=== PATIENT | female | born 1940 | race Caucasian/White ===

== ENCOUNTER 2022-01-31 14:28 | Outpatient (REF) | payer MEDICARE, SELFPAY ==
--- NOTE | ~2022-01-31 | XR_ITS ---
EXAMINATION: XR CHEST CLINICAL INFORMATION: Acute bronchitis COMPARISON: None TECHNIQUE: 2 views of the chest were obtained. FINDINGS: No significant abnormality is noted involving the heart, lungs, mediastinum, bony thorax or soft tissues. XR/XR chest 2V IMPRESSION: Unremarkable examination.
== END 2022-01-31 14:29 | disposition home or self-care (01) ==
LOC: HO.HMGCX 14:28
PROVIDERS: PCP Internal Medicine; Visit Provider Internal Medicine
DX: J20.9 Acute bronchitis, unspecified (principal)
CPT/HCPCS: 71046

== ENCOUNTER 2022-06-23 11:57 | Outpatient (REF) | payer MEDICARE, SELFPAY ==
--- NOTE | ~2022-06-23 | XR_ITS ---
EXAMINATION: XR CHEST CLINICAL INFORMATION: Acute bronchitis. COMPARISON: 01/31/2022 TECHNIQUE: 2 views of the chest were obtained. FINDINGS: Lungs are well expanded and without evidence of acute abnormality. No interstitial infiltrate, consolidation or pleural effusion. Cardiac silhouette is normal in size. The pulmonary vascular pattern is normal. The visualized bones are intact. XR/XR chest 2V IMPRESSION: No acute pulmonary disease.
== END 2022-06-23 11:58 | disposition home or self-care (01) ==
LOC: HO.HMGCX 11:57
PROVIDERS: PCP Internal Medicine; Visit Provider Internal Medicine
DX: J20.9 Acute bronchitis, unspecified (principal)
CPT/HCPCS: 71046

== ENCOUNTER 2024-04-24 09:34 | Outpatient (REF) | payer MEDICARE, SELFPAY | END 2024-04-24 09:35 | disposition home or self-care (01) | LOC: HO.LAB 09:34 | PROVIDERS: PCP Internal Medicine | DX: Z13.89 Encounter for screening for other disorder (principal) | CPT/HCPCS: 94640; 99202 ==

== ENCOUNTER 2024-04-24 09:34 | Outpatient (AMB) | payer MEDICARE, SELFPAY ==
[2024-04-24 10:25] VITALS: BP 120/70; PULSE 76; O2SAT 94; BMI 28.0
--- NOTE | 2024-04-24 10:25 | MHC.OFFWIV ---
Intake Vital Signs 04/24/24 10:25 Height 5 ft 2 in Weight 153 lb BMI 28.0 BP 120/70 Blood Pressure Location Lt brachial Position Sitting Pulse 76 Pulse Source Pulse Oximeter Pulse Oximetry (%) 94 Oxygen Delivery Method Room Air Intake Visit Reasons: EP cough, congestion Intake Note: Pt is here today for a sick visit. Pt c/o cough congestion body aches. Allergies No Known Allergies Allergy (Verified 04/24/24 10:27) HPI HPI Comments History of Present Illness Details History - The patient is an 83-year-old female presenting with a persistent cough lasting five days. - Symptom onset was gradual but has notably intensified over the last one to two days. - The cough is particularly severe at night, causing chest pain and headache, and is accompanied by shortness of breath and occasional wheezing, despite no history of asthma or COPD. - The patient attempted symptom management using [id number] cough syrup, aspirin, and cough drops. - There is a possible sensation of fever without temperature confirmation. - No current illnesses among contacts.l. Physical Exam General: Cooperative, healthy appearing, comfortable and no acute distress Orientation/consciousness: Patient oriented x3 Limitations: No limitations Head: Normal to inspection Ears: Hearing grossly normal bilaterally, external ears normal and TM's normal bilaterally Nose: Normal external nose present, Normal nares present and No nasal discharge present Face and sinus: Normal facial exam and Yes sinuses nontender Mouth: Normal oral and palatal mucosa present and moist mucous membranes Throat: Yes tonsils normal, Yes uvula midline. Posterior oropharynx erythema Eyes: Appearance normal, both eyes and all related structures Neck: Normal visual inspection Respiratory: Clear but dim to auscultation bilaterally. Normal respiratory effort, able to speak in complete sentences, Actively coughing, no respiratory distress, not tachypneic, no tripod positioning and no use of accessory muscles Cardiovascular: Regular rate and rhythm. Normal S1 and S2 Skin: No rashes or lesions noted Neuro: Patient oriented x3 Extremities: Normal to inspection and Yes no clubbing, cyanosis or edema Review of Systems Const All systems reviewed & are unremarkable except as noted in HPI and below Physical Exam Vital Signs: Last Vital Signs Pulse 76 04/24/24 10:25 BP 120/70 04/24/24 10:25 Pulse Ox 94 04/24/24 10:25 Oxygen Delivery Method Room Air 04/24/24 10:25 BMI result Body Mass Index 28.0 Office Procedures Nebulizer Treatment Nebulizer Treatment [id number]/MDI RX initial, or Nebulizer Subsequent Treatment Office Meds ipratropium 0.5 mg-albuterol 3 mg (2.5 mg base)/3 mL nebulization soln Performing Provider: Prema Bliss PA-C Performing Location: [facility] Administered by: Prema Bliss PA-C on 04/24/24 11:06 Dose Route Admin Location Dispensed Lot Number Expiration Date [facility] [place] [employer] 3 mL inhalation 3 mL [id number] 06/07/25 71709-352-18 [employer] Assessment & Plan Assessment & Plan (1) Acute bronchitis: Code(s): J20.9 - Acute bronchitis, unspecified Qualifiers: Bronchitis organism: unspecified organism Qualified Code(s): J20.9 - Acute bronchitis, unspecified Plan: O2 sat 94%, other vss, pt coughing a lot during exam and lung sounds dim but clear. O2 sat 97% post duoneb nebulizer treatment. The patient is experiencing a productive cough with symptoms pointing towards a potential viral or bacterial respiratory infection. Testing for influenza, COVID-19, and RSV is planned to rule out common respiratory viruses. A chest X-ray is advised to identify potential bacterial pneumonia. Nebulization therapy will be administered in office to reduce bronchospasm and improve breathing discomfort. Tessalon Perles are advised to help manage nightly coughing fits, while a Z-Benjamin is prescribed to cover atypical bacterial infections. If the chest X-ray confirms pneumonia, a second antibiotic may be included for broader coverage. Patient was informed and verbally consented to the use of an ambient scribe for clinic note documentation during this visit Orders: Orders SARS-CoV2/FLU/RSV Today R09.89 - Other specified symptoms and signs involving the circulatory and respiratory systems AMB Nebulizer Treatment Today J20.9 - Acute bronchitis, unspecified Medications: New benzonatate 200 mg PO TID PRN 14 caps 0RF cough azithromycin For 250 mg dose pack: take 500 mg today (day 1), then 250 mg for 4 days (days 2-5) PO 6 tabs 0RF Coding Level of Care Code New Pt Level 5 (41724) Diagnoses Acute bronchitis, unspecified organism J20.9 Bronchitis organism: unspecified organism CPT Codes Nebulizer Treatment - Nebulizer Treatment, initial or subsequent: [id number]/MDI RX initial, or Nebulizer Subsequent Treatment ([id number])
== END 2024-04-24 11:19 | disposition home or self-care (01) ==
PROVIDERS: PCP Internal Medicine; Visit Provider Physician Assistant
DX: J20.9 Acute bronchitis, unspecified (principal)

== ENCOUNTER 2024-04-24 11:12 | Outpatient (REF) | payer MEDICARE, SELFPAY ==
--- NOTE | ~2024-04-24 | XR_ITS ---
EXAMINATION: XR CHEST 2 VIEWS HISTORY: R05.9 - Cough, unspecified COMPARISON: Comparison is made with the prior examination dated 06/23/2022. FINDINGS: PA and lateral views of the chest are submitted. The lungs are expanded and clear. There is no pleural effusion, pneumothorax, or pulmonary vascular congestion. The heart is normal in size. There is degenerative disc disease of the spine. XR/XR chest 2V IMPRESSION: No acute cardiopulmonary abnormality. Electronically signed by: Denilson Nicole MD 04/24/2024 12:10 PM ABIEL
[2024-04-24 13:57] LABS: Influenza A PCR NEGATIVE (Negative); Influenza B PCR NEGATIVE (Negative); Resp Syncy Virus RNA Qual PCR POSITIVE (Negative); SARS COV2 PCR INHOUSE NEGATIVE (Negative)
== END 2024-04-24 11:13 | disposition home or self-care (01) ==
LOC: HO.HMGCX 11:12
PROVIDERS: PCP Internal Medicine; Visit Provider Physician Assistant
DX: J20.9 Acute bronchitis, unspecified (principal); R09.89 Other specified symptoms and signs involving the circulatory and respiratory systems
CPT/HCPCS: 0241U; 71046; 94640; 99202

== ENCOUNTER → 2024-04-24 11:25 | Outpatient (BNV) | payer MEDICARE, SELFPAY | PROVIDERS: PCP Internal Medicine; Visit Provider Radiology Diagnostic Radiology | DX: R05.9 Cough, unspecified (principal) | CPT/HCPCS: 71046 ==

== ENCOUNTER 2025-01-01 14:38 | Outpatient (AMB) | payer MEDICARE, SELFPAY ==
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
[2025-01-01 14:44] VITALS: BP 126/64; PULSE 75; TEMP 36.6; O2SAT 98; BMI 27.1
--- OUTSIDE RECORDS SUMMARY | 2025-01-01 17:13 | XMS_ITS | Encounter Summary ---
Author Organization [employer] Address [address] [place] [address] 7 [place] [address] Care Team Providers Care Package Sealer Name Role Phone Unavailable Primary Care Provider Unavailabl e Encounter Details Date Type Department Care Team (Latest Contact Info) Description 06/08/2020 Abstract [facility] CONVERSIONS Dental, Provider, DDS Social History Tobacco Use Types Packs/Day Years Used Date Smoking Tobacco: Never Assessed Comments Unknown Sex and Gender Information Value Date Recorded Sex Assigned at Female 02/07/2022 10:23 AM EDT Legal Sex Female 10:23 AM EDT Gender Identity Female 09/12/2022 8:11 AM EDT Sexual Orientation Straight 02/07/2022 10 :23 AM EDT documented as of this encounter Plan of Treatment Upcoming Encounters Date Type Department Care Team ( st Contact Info) Description 04/01/2025 10:15 AM EST Office Visit [facility] [address] [place] [address] Maverick Briones documented as of this encounter Visit Diagnoses Not on filedocumented in this encounter
--- OUTSIDE RECORDS SUMMARY | 2025-01-01 17:13 | XMS_ITS | Encounter Summary ---
Author Organization [employer] Address [address] [place] [address] [place] [address] Care Team Providers Care Marketing Community Liaison Name Role Phone Unavailable Primary Care Provider Unavailabl e Reason for Visit * Reason Onset Date Comments Appointment 08/26/2022 Encounter Details Date Type Department Care Team (Late st Contact Info) Description 08/26/[address] [facility] [address] [place] [address] Ehsan Reddy [address] [place], [place] [phone] Appointment Social History Tobacco Use Types Packs/Day Years Used Date Smoking Tobacco: Never Assessed Comments Unknown Sex and Gender Information Value Date Recorded Sex Assigned at Female 02/07/2022 10:23 AM EDT Legal Sex Female 10:23 AM EDT Gender Identity Female 09/12/2022 8:11 AM EDT Sexual Orientation Straight 02/07/2022 10 :23 AM EDT documented as of this encounter Miscellaneous Notes * Telephone Encounter - Lubna Fitzgerald - 08/26/2022 11:01 AM EDT Patient has been on wait list since May in [facility] for Prophy exam xrays. No room on PAR side for scheduling. Pls reach out to patient for appt DR documented in this encounter Plan of Treatment Upcoming Encounters Date Type Department Care Team (Late st Contact Info) Description 04/01/2025 10:15 AM EST Office Visit [facility] [address] [place] [address] Maverick Briones documented as of this encounter Visit Diagnoses Not on filedocumented in this encounter
--- OUTSIDE RECORDS SUMMARY | 2025-01-01 17:13 | XMS_ITS | Encounter Summary ---
Author Organization [employer] Address [address] [place] [address] 7 [place] [address] Care Team Providers Care Nick Setter Name Role Phone Unavailable Primary Care Provider Unavailabl e Encounter Details Date Type Department Care Team (Latest Contact Info) Description 08/11/2021 Abstract [facility] CONVERSIONS Dental, Provider, DDS Social History Tobacco [...] Description 04/01/2025 10:15 AM EST Office Visit [facility] [address] [place] [address] Maverick Briones documented as of this encounter Visit Diagnoses Not on filedocumented in this encounter
--- OUTSIDE RECORDS SUMMARY | 2025-01-01 17:13 | XMS_ITS | Clinical Summary ---
Author Organization [employer] Address [address] [place] [address] [address] [place] [address] Care Team Providers Care [employer] Name Role Phone Unavailable Primary Care Provider Unavailabl e Allergies No known active allergies Medications hydroCHLOROthia zide (HYDRODiuril) 6.25 MG split tablet Take 1 tablet by mouth at bed time. Active ibuprofen 600 MG tablet take 1 tablet (600MG) by oral route 3 times with food 04/12/2018 Active omeprazole (PriLOSEC) [address] capsule Take 1 capsule by mouth at bed time. Active simvastatin (Zocor) 20 MG tablet Take 1 tablet by mouth at bed time. Active losartan (Cozaar) 50 MG tablet Take 50 mg by mouth in the morning. 09/27/2022 Active oxybutynin XL (Ditropan-XL) 10 MG 24 hr tablet Take 10 mg by mouth in the morning. 09/07/2022 Active meloxicam (Mobic) 7.5 MG tablet Take 7.5 mg by mouth in the morning. 09/08/2022 Active gabapentin (Neurontin) 100 MG capsule Take 100 mg by mouth 2 times daily. 09/21/2022 Active amLODIPine (Norvasc) 10 MG tablet Take 1 tablet by mouth Once per day. 08/01/2024 Active Encounters Date Type Department Care Team Description 10/08/2024 11:00 AM EDT Office Visit [facility] [address] [place] [address] Aaron Crews from Last 3 Months Social History Tobacco Use Types Packs/Day Years Used Date Smoking Tobacco: Never Passive Smoke Exposure: Never Smokeless Tobacco: Never Tobacco Cessation:Counseling Given: Not Answered Alcohol Use Standard Drinks/Week Comments Yes 1 (1 standard drink = 0.6 oz pur e alcohol) Comments Unknown Sex and Gender Information Value Date Recorded Sex Assigned at Female 02/07/2022 10:23 AM EDT Legal Sex Female 10:23 AM EDT Gender Identity Female 09/12/2022 8:11 AM EDT Sexual Orientation Straight 02/07/2022 10 :23 AM EDT Last Filed Vital Signs Vital Sign Reading Time Taken Comments Blood Pressure 130/60 09/24/2024 8:04 AM EDT Pulse 65 09/24/2024 8:04 AM EDT Temperature - - Respiratory Rate - - Oxygen Saturation - - Inhaled Oxygen Concentration - - Weight - - Height - - Body Mass Index - - Plan of Treatment Upcoming Encounters Date Type Department Care Team (Late st Contact Info) Description 04/01/2025 10:15 AM EST Office Visit [facility] [address] [place] [address] Maverick Briones Health Maintenance Due Date Last Done Comments Depression Screening 1940 Lipid Panel 1940 SDOH Screening 1940 Alcohol/Substance Use Screening 1952 Zoster Vaccines (1 of 2) 1990 RSV Patients and Patients Aged 60 years or older (1 - 1-dose 75+ series) 06/28/2015 DTaP/Tdap/Td Vaccines (1 - Tdap) 01/16/2021 01/15/2021, 07/19/2005 Dental Oral Exam 03/23/2024 09/21/2023, 03/2023, 09/12/2022, Additional history exists COVID-19 Vaccine ( season) 2024 12/20/2023, 03/02/2021, 08/15/2020, Additional history exists Influenza Vaccine (#1) 2024 Dental Prophylaxis 03/27/2025 09/24/2024, 1 05/26/2023, 09/21/2023, Additional history exists Dental X-Ray: Bitewings 09/25/2025 09/25/19, 09/21/2023, 09/12/2022, Additional history exists Tobacco Screening 10/08/2025 10/08/2024 Dental X-Ray: Full Mouth 09/21/2026 09/21/2023, 10/09 Pneumococcal Vaccine: 50+ Years Completed 06/19/2024, 07/19/2005 HIB Vaccines Aged Out No longer eligi ble based on patient's age to complete this topic HPV Vaccines Aged Out No longer eligi ble based on patient's age to complete this topic Hepatitis A Vaccines Aged Out No long er eligible based on patient's age to complete this topic Hepatitis B Vaccines Aged Out No long er eligible based on patient's age to complete this topic IPV Vaccines Aged Out No longer eligi ble based on patient's age to complete this topic Meningococcal B Vaccine Aged Out No l onger eligible based on patient's age to complete this topic Meningococcal Vaccine Aged Out No bonnie theresa eligible based on patient's age to complete this topic RSV under 20 months Aged Out No longe r eligible based on patient's age to complete this topic Rotavirus Vaccines Aged Out No longer eligible based on patient's age to complete this topic Procedures Procedure Name Priority Date/Time Associated Diagnosis Comments 28 B RESIN-BASED COMPOSITE - 1 SURF, POSTERIOR Routine 10/08/2024 11:00 AM EDT PROPHYLAXIS - ADULT Routine 09/24/2024 8 :00 AM EDT BITEWINGS - 4 RADIOGRAPHIC IMAGES Routine 09/24/2024 8:00 AM EDT INTRAORAL - COMPLETE SERIES OF RADIOGRAPHIC IMAGES Routine 09/21/2023 8:00 AM EDT PERIODIC ORAL EVALUATION - ESTABLISHED PATIENT Routine 09/21/2023 8:00 AM EDT from Last 3 Months or Most Recently Relevant to Health Maintenance Insurance DENTAL - HSN FULL (MEDICAID)
--- OUTSIDE RECORDS SUMMARY | 2025-01-01 17:13 | XMS_ITS | Clinical Summary ---
Author Organization [facility] [address] [facility] Address [address] [place] [address] Phone Care Team Providers Care Trade Mark Attorney Name Role Phone Kimberlyn Garcia MD Primary Care Provider Allergies No known active allergies Medications gabapentin (NEURONTIN) 100 mg capsule TAKE 2 CAPSULES BY MOUTH TWICE A DAY FOR 30 DAYS Active albuterol HFA (PROAIR HFA ; PROVENTIL HFA ; VENTOLIN HFA) 90 mcg/actuation inhaler Inhale 2 puffs by mouth every 4 (four) hours if needed for wheezing. 18 g 04/25/2024 Active amLODIPine (NORVASC) 10 mg tablet Take 1 tablet (10 mg total) by mouth 1 (one) time each day. 90 each 1 08/01/2024 01/29/20 25 Active losartan (COZAAR) 100 mg tablet Take 1 tablet (100 mg total) by mouth 1 (one) time each day. 90 tablet 1 08/01/2024 Active omeprazole (PriLOSEC) [address] capsule TAKE 1 CAPSULE BY MOUTH 1 TIME EACH DAY. 90 capsule 1 09/01/2024 Active oxyBUTYnin XL (DITROPAN-XL) 10 mg 24 hr tablet TAKE 1 TABLET BY MOUTH EVERY DAY 90 tablet 1 09/01/2024 Active hydroCHLOROthia zide 12.5 mg tablet TAKE 1 TABLET (12.5 MG TOTAL) BY MOUTH AT BEDTIME. 90 tablet 1 09/19/2024 Active simvastatin (ZOCOR) 20 mg tablet TAKE 1 TABLET BY MOUTH EVERYDAY AT BEDTIME 90 tablet 1 11/28/2024 Active Active Problems Problem Noted Date Diagnosed Date Prediabetes 01/15/2021 Assessment & Plan (05/13/2024 5:13 PM EST): Orders: Hemoglobin A1c; Future Overweight 07/19/2017 Thrombocytopenia ([facility] V24) 03/26/2010 Overview (04/21/2024): Pure hypercholesterolemia 04/07/2009 Assessment & Plan (05/13/2024 5:13 PM EST): GERD (gastroesophageal reflux disease) Overview (04/21/2024): Upper GI endoscopy visually normal 09/16 Essential hypertension, benign 08/24/2005 Assessment & Plan (05/13/2024 5:13 PM EST): Urinary incontinence 07/19/2005 Encounters Date Type Department Care Team Description 10/30/2024 9:33 AM EDT - 10/30/2024 11:59 PM EDT Hospital Encounter [address] [phone] Fall, subsequent encounter; Acute pain of right knee Discharge Disposition: Home or Self Care 10/30/2024 9:30 AM EDT - 10/30/2024 11:59 PM EDT Hospital Encounter [address] [phone] Fall, subsequent encounter; Right wrist pain Discharge Disposition: Home or Self Care 10/30/2024 8:30 AM EDT Office Visit Adult Medicine [address] [phone] Niharika Ramos PA Fall, subsequent encounter (Primary Dx); Facial injury, subsequent encounter; Facial laceration, subsequent encounter; Nasal pain; Acute pain of right knee; Right wrist pain 10/25/2024 7:49 AM EDT - 10/25/2024 10:[address] [facility] Emergency [address] [place] [address] Heri Strong MD Laceration of nose, initial encounter (Primary Dx) Discharge Disposition: Home or Self Care 10/15/2024 2:15 PM EDT Office Visit Adult Medicine [address] [phone] Stefani Berry NP Herpes zoster without complication (Primary Dx); Primary hypertension 10/15/2024 Telephone Adult Medicine [address] [phone] Kimberlyn Garcia MD from Last 3 Months Immunizations Name Administration Dates Next Due Pneumococcal conjugate 20 va lent (Prevnar 20, PCV 20) 2mo and older 06/19/2024 Pneumococcal polysaccharide 23 valent (Pneumovax 23) 2yo and older 07/19/2005 Td Tetanus diptheria (Tdvax) 7yo and older 01/15,07/19/2005 Surgical History Surgery Date Site/Laterality Comments HYSTERECTOMY : Has one ovary ESOPHAGOGASTRODUODENOSCOPY 09/16/2008 visually normal on PPI rx, esophageal bx: Esophageal biopsies normal. OTHER SURGICAL HISTORY 2009 PELVIC SLING; COMMENT: Dr. Lauren, TO sling for incontinence Medical History Medical History Date Comments Unspecified urinary incontinence 07/19/2005 Special screening for malign ant neoplasms, colon 04/17/2006 Negative colonoscopy 7, no colon cancer screening needed for 10 years. Unspecified essential hypertension 01/19/2007 Heart disease, unspecified 01/19/2007 GERD (gastroesophageal reflux disease) 09/16/2008 Thrombocytopenia (CMS/HCC V24) 03/26/2010 Prediabetes 01/15/2021 Family History Medical History Relation Name Comments Diabetes Father alzheimers Lung cancer Sister 1 Ovarian cancer Sister 2 Breast cancer Neg Hx Colon cancer Neg Hx Relation Name Status Comments Father Mother (Age age 89 of old age) Sister 1 Sister 2 Social History Tobacco Use Types Packs/Day Years Used Date Smoking Tobacco: Never Smokeless Tobacco: Never Tobacco Cessation:Counseling Given: Not Answered Alcohol Use Standard Drinks/Week Comments Yes 0 (1 standard drink = 0.6 oz pur e alcohol) Comments No Sex and Gender Information Value Date Recorded Sex Assigned at Not on file Legal Sex Female 7:53 AM EST Gender Identity Not on file Sexual Orientation Not on file Obstetrics History Para Term AB IAB SAB Ectopic Multiple Livin g Live Births 4 4 4 4 Date Outcome GA Total Labor Labor/2nd/3rd Weight Sex Type Anes PTL Tami A1 A5 Name Clin Term Term Term Term Last Filed Vital Signs Vital Sign Reading Time Taken Comments Blood Pressure 106/88 10/30/2024 8:27 AM EDT Pulse 71 10/30/2024 8:27 AM EDT Temperature 36.6 C (97.8 F) 10/30/2024 8:27 AM EDT Respiratory Rate 14 10/30/2024 8:27 AM EDT Oxygen Saturation 97% 10/30/2024 8:27 AM EDT Inhaled Oxygen Concentration - - Weight 64.9 kg (143 lb) 10/30/2024 8:27 AM EDT Height 157.5 cm (5' 2 ) 10/30/2024 8:27 AM EDT Body Mass Index 26.16 10/30/2024 8:27 AM EDT Plan of Treatment Upcoming Encounters Date Type Department Care Team (Late st Contact Info) Description 01/31/2025 8:00 AM EDT Office Visit Adult Medicine [address] [phone] Nan Spain PA [address] [place] [phone] Health Maintenance Due Date Last Done Comments Zoster Vaccines (1 of 2) 1990 RSV Immunization Adult Patients (1 - 1-dose 75+ series) 06/28/2015 Social Influencers of Health Screening 03/19/2022 COVID-19 Vaccine ( season) 2024 12/20/2023, 03/02/2021, 08/15/2020, Additional history exists Influenza Vaccine (#1) 2024 Hypertension/CHF/CAD Annual BMP Blood Test 04/28/2025 04/28/2024, 04/25/2024, 01/19/2024 Falls Risk Assessment 05/13/2025 05/13/2024 Medicare Annual Wellness Visit 05/13/2025 05/13/2024 Cholesterol Screening (Lipid Panel) 07/27/2028 07/28/2023 DTaP,Tdap,and Td Vaccines (3 - Td or Tdap) 01/15/2031 01/15/2021, 07/19/2005 Osteoporosis Screening (Bone Density Screening) 09/11/2035 09/10/2020, 07/31/2017 Depression Screening Completed 05/13/2024 Pneumococcal Vaccine: 50+ Years Completed 06/19/2024, 07/19/2005 [...] on patient's age to complete this topic MMR Vaccines Aged Out No longer eligi ble based on patient's age to complete this topic Meningococcal ACWY Vaccine Aged Out N o longer eligible based on patient's age to complete this topic Meningococcal B Vaccine Aged Out No l onger eligible based on patient's age to complete this topic RSV Immunization Patients Under 20 months Aged Out No longer eligible based on patient's age to complete this topic Varicella Vaccines Aged Out No longer eligible based on patient's age to complete this topic Procedures Procedure Name Priority Date/Time Associated Diagnosis Comments XR WRIST 3+ VIEWS RIGHT STAT 10/30/2024 9:49 AM EDT Fall, subsequent encounter Right wrist pain XR KNEE 4+ VIEWS RIGHT STAT 9:49 AM EDT Fall, subsequent encounter Acute pain of right knee HC REPAIR WOUND LEVEL 1 Routine 10/25/2024 12:17 PM EDT IN REPAIR SPRFCL WD SIMPLE FACE/EARS/EYELIDS/NOSE /LIPS/MUC MEMB <= 2.5 CM Routine 10/25/2024 12:[address] MAXILLOFACIAL WO CONTRAST STAT 10/25/2024 9:[address] CERVICAL SPINE WO CONTRAST STAT 10/25/2024 9:[address] HEAD WO CONTRAST STAT 10/25/2024 9 :08 AM EDT BASIC METABOLIC PANEL STAT 04/28/2024 10:17 AM EST LIPID PANEL Routine 07/28/2023 DXA BONE DENSITY STUDY 1+ SITS AXIAL SKEL Routine 09/10/2020 9:43 AM EDT Asymptomatic menopausal state from Last 3 Months or Most Recently Relevant to Health Maintenance Results * XR Wrist 3+ Views Right (10/30/2024 9:49 AM EDT) Anatomical Region Laterality Modality Upper Extremities, Wrist Right Radiogr aphic Imaging 10/30/2024 10:1 6 AM EDT Narrative 10/30/2024 10:20 AM EDT Right wrist, 5 views. History status post fall. Pain. There is no visible displaced fractures or dislocations. There are degenerative changes in the radiocarpal joint as well as in the first carpometacarpal joint. There are tiny calcifications adjacent to the radial styloid process. CONCLUSIONS: No visible displaced fractures or dislocations. Degenerative changes. Tiny calcifications adjacent to the radial styloid process. Please correlate clinically. If symptoms persist, consider CT of the wrist. -------- FINAL REPORT -------- Dictated By: Grisel Alexander Dictated Date: 10/30/2024 10:16 ET Assigned Physician: Grisel Alexander Reviewed and Electronically Signed By: Grisel Alexander Signed Date: 10/30/2024 10:20 ET Workstation ID: [id number] Transcribed By: Self Edit Transcribed Date: 10/30/2024 10:16 ET Procedure Note Grisel Alexander MD - 10/30/2024 Right wrist, 5 views. History status post fall. Pain. There is no visible displaced fractures or dislocations. There aredegenerative changes in the radiocarpal joint as well as in the firstcarpometacarpal joint. There are tiny calcifications adjacent to theradial styloid process. CONCLUSIONS: No visible displaced fractures or dislocations. Degenerativechanges. Tiny calcifications adjacent to the radial styloid process.Please correlate clinically. If symptoms persist, consider CT of thewrist. -------- FINAL REPORT -------- Dictated By: Grisel Alexander Dictated Date: 10/30/2024 10:16 ET Assigned Physician: Grisel Alexander Reviewed and Electronically Signed By: Grisel Alexander Signed Date: 10/30/2024 10:20 ET Workstation ID: [id number] Transcribed By: Self Edit Transcribed Date: 10/30/2024 10:16 ET Niharika NAIK IMG XR PROCEDURES Final Result * XR Knee 4+ Views Right (10/30/2024 9:49 AM EDT) Anatomical Region Laterality Modality Lower Extremities, Knee Right Radiogra [facility] Imaging 10/30/2024 10:1 4 AM EDT Narrative 10/30/2024 10:16 AM EDT Right knee, 4 views. History pain and swelling after the fall. There is no visible fractures or dislocations. There is narrowing of the joint space medially. There are marginal osteophytes in the medial and patellofemoral compartments. There is subtle calcification of the lateral meniscus. There is small effusion. CONCLUSIONS: No fractures or dislocations. Degenerative changes. Chondrocalcinosis. -------- FINAL REPORT -------- Dictated By: Grisel Alexander Dictated Date: 10/30/2024 10:14 ET Assigned Physician: Grisel Alexander Reviewed and Electronically Signed By: Grisel Alexander Signed Date: 10/30/2024 10:16 ET Workstation ID: [id number] Transcribed By: Self Edit Transcribed Date: 10/30/2024 10:14 ET Procedure Note Grisel Alexander MD - 10/30/2024 Right knee, 4 views. History pain and swelling after the fall. There is no visible fractures or dislocations. There is narrowing of thejoint space medially. There are marginal osteophytes in the medial andpatellofemoral compartments. There is subtle calcification of the lateralmeniscus. There is small effusion. CONCLUSIONS: No fractures or dislocations. Degenerative changes.Chondrocalcinosis. -------- FINAL REPORT -------- Dictated By: Grisel Alexander Dictated Date: 10/30/2024 10:14 ET Assigned Physician: Grisel Alexander Reviewed and Electronically Signed By: Grisel Alexander Signed Date: 10/30/2024 10:16 ET Workstation ID: [id number] Transcribed By: Self Edit Transcribed Date: 10/30/2024 10:14 ET us Niharika NAIK IMG XR PROCEDURES Final Result * IN REPAIR SPRFCL WD SIMPLE FACE/EARS/EYELIDS/NOSE/LIPS/MUC MEMB <= 2.5 CM, HC REPAIR WOUND LEVEL1 (10/25/2024 12:17 PM EDT) Heri Mcpherson MD - 10/25/2024 12:17 PM EDT Heri Strong MD 10/25/2024 12:56 PM Laceration Repair Date/Time: 10/25/2024 12:17 PM Performed by: Heri Strong MD Authorized by: Heri Strong MD Consent: Consent obtained: Verbal Consent given by: Patient Risks, benefits, and alternatives were discussed: yes Risks discussed: Infection, need for additional repair, nerve damage, poor wound healing, poor cosmetic result, pain and retained foreign body Alternatives discussed: No treatment [place] protocol: Patient identity confirmed: Verbally with patient Anesthesia: Anesthesia method: None Laceration details: Location: Face Face location: Nose Length (cm): 0.5 Depth (mm): 3 Pre-procedure details: Preparation: Imaging obtained to evaluate for foreign bodies and patient was prepped and draped in usual sterile fashion Exploration: Limited defect created (wound extended): no Hemostasis achieved with: Direct pressure Imaging outcome: foreign body not noted Wound exploration: wound explored through full range of motion and entire depth of wound visualized Wound extent: areolar tissue violated Wound extent: no fascia violation noted, no foreign bodies/material noted, no muscle damage noted, no nerve damage noted, no tendon damage noted, no underlying fracture noted and no vascular damage noted Contaminated: no Treatment: Area cleansed with: Saline Amount of cleaning: Standard Irrigation solution: Sterile saline Irrigation volume: 20cc Irrigation method: Syringe Visualized foreign bodies/material removed: no Debridement: None Undermining: None Scar revision: no Skin repair: Repair method: Sutures Suture size: 6-0 Suture material: Nylon Suture technique: Simple interrupted Number of sutures: 1 Approximation: Approximation: Close Repair type: Repair type: Simple Post-procedure details: Dressing: Antibiotic ointment and adhesive bandage Procedure completion: Tolerated well, no immediate complications us Heri Strong MD IN CLINIC/BEDSIDE ORDERABLES Fin al Result * CT Cervical Spine wo Contrast (10/25/2024 9:08 AM EDT) Anatomical Region Laterality Modality Spine, C-spine Computed Tomogra phy 10/25/2024 9:24 AM EDT Impressions 10/25/2024 9:28 AM EDT Degenerative changes of the cervical spine. No acute fracture. -------- FINAL REPORT -------- Dictated By: Bryan Bajwa Dictated Date: 10/25/2024 09:24 ET Assigned Physician: Bryan Bajwa Reviewed and Electronically Signed By: Bryan Bajwa Signed Date: 10/25/2024 09:28 ET Workstation ID: [id number] Transcribed By: Self Edit Transcribed Date: 10/25/2024 09:24 ET Narrative 10/25/2024 9:28 AM EDT PROCEDURE: Noncontrast CT of the cervical spine. HISTORY: Neck trauma (Age >= 65y). TECHNIQUE: Noncontrast CT of the cervical spine with coronal and sagittal reformats. COMPARISON: None. Dose length product: Total for all concurrently acquired exams was 2266 mGy-cm. FINDINGS: Heterogeneous appearance of the thyroid gland. Mild atherosclerotic calcification of the carotid bulbs. No other paraspinous soft tissue findings. No CT evidence of an acute epidural hematoma. No prevertebral soft tissue swelling. Debris in the external auditory canals. Visualized portions of the skull base are otherwise unremarkable. Bones appear demineralized. There is a slight reversal of the typical cervical lordosis. Slight anterolisthesis at C3-4, C4-5, and C6-7. Mild anterolisthesis at C7-T1. These appear to be degenerative. No fracture. Many of the upper cervical facet joints are fused. Moderate degenerative changes of the endplates and facet joints. There is moderate degenerative spinal stenosis at C5-6. Procedure Note Bryan Bajwa MD - 10/25/2024 PROCEDURE: Noncontrast CT of the cervical spine. HISTORY: Neck trauma (Age >= 65y). TECHNIQUE: Noncontrast CT of the cervical spine with coronal and sagittalreformats. COMPARISON: None. Dose length product: Total for all concurrently acquired exams was 2266mGy-cm. FINDINGS: Heterogeneous appearance of the thyroid gland. Mild atheroscleroticcalcification of the carotid bulbs. No other paraspinous soft tissuefindings. No CT evidence of an acute epidural hematoma. No prevertebralsoft tissue swelling. Debris in the external auditory canals. Visualized portions of the skullbase are otherwise unremarkable. Bones appear demineralized. There is a slight reversal of the typicalcervical lordosis. Slight anterolisthesis at C3-4, C4-5, and C6-7. Mildanterolisthesis at C7-T1. These appear to be degenerative. No fracture. Many of the upper cervical facet joints are fused. Moderatedegenerative changes of the endplates and facet joints. There is moderatedegenerative spinal stenosis at C5-6. IMPRESSION: Degenerative changes of the cervical spine. No acute fracture. -------- FINAL REPORT -------- Dictated By: Bryan Bajwa Dictated Date: 10/25/2024 09:24 ET Assigned Physician: Bryan Bajwa Reviewed and Electronically Signed By: Bryan Bajwa Signed Date: 10/25/2024 09:28 ET Workstation ID: [id number] Transcribed By: Self Edit Transcribed Date: 10/25/2024 09:24 ET Heri Strong MD [facility] [place] PROCEDURES Final Result * CT Maxillofacial wo Contrast (10/25/2024 9:08 AM EDT) Anatomical Region Laterality Modality Head and Neck Computed Tomogra phy 10/25/2024 9:20 AM EDT Impressions 10/25/2024 9:24 AM EDT Mild irregularity of the nasal bones. Cannot exclude a subtle nondisplaced fracture. No other evidence of a facial fracture. -------- FINAL REPORT -------- Dictated By: Bryan Bajwa Dictated Date: 10/25/2024 09:20 ET Assigned Physician: Bryan Bajwa Reviewed and Electronically Signed By: Bryan Bajwa Signed Date: 10/25/2024 09:24 ET Workstation ID: [id number] Transcribed By: Self Edit Transcribed Date: 10/25/2024 09:20 ET Narrative 10/25/2024 9:24 AM EDT PROCEDURE: CT of the face without intravenous contrast. HISTORY: Facial trauma. COMPARISON: None. TECHNIQUE: Noncontrast CT of the face with coronal and sagittal reformats. Dose length product: Total for all concurrently acquired exams was 2266 mGy-cm. FINDINGS: There are atherosclerotic calcifications of the carotid bulbs. Visualized skull base soft tissues are otherwise unremarkable. Degenerative changes of the cervical spine, better visualized on the accompanying dedicated CT C-spine. Debris in the external auditory canals. Hyperostosis frontalis interna. Subtle irregularity of the nasal bones; cannot exclude a subtle nondisplaced fracture. No other evidence of a facial fracture. Incidentally noted small left rayna bullosa. Procedure Note Bryan Bajwa MD - 10/25/2024 PROCEDURE: CT of the face without intravenous contrast. HISTORY: Facial trauma. COMPARISON: None. TECHNIQUE: Noncontrast CT of the face with coronal and sagittalreformats. Dose length product: Total for all concurrently acquired exams was 2266mGy-cm. FINDINGS: There are atherosclerotic calcifications of the carotid bulbs. Visualizedskull base soft tissues are otherwise unremarkable. Degenerative changes of the cervical spine, better visualized on theaccompanying dedicated CT C-spine. Debris in the external auditorycanals. Hyperostosis frontalis interna. Subtle irregularity of the nasal bones; cannot exclude a subtlenondisplaced fracture. No other evidence of a facial fracture. Incidentally noted small left rayna bullosa. IMPRESSION: Mild irregularity of the nasal bones. Cannot exclude a subtlenondisplaced fracture. No other evidence of a facial fracture. -------- FINAL REPORT -------- Dictated By: Bryan Bajwa Dictated Date: 10/25/2024 09:20 ET Assigned Physician: Bryan Bajwa Reviewed and Electronically Signed By: Bryan Bajwa Signed Date: 10/25/2024 09:24 ET Workstation ID: [id number] Transcribed By: Self Edit Transcribed Date: 10/25/2024 09:20 ET Heri Strong MD [facility] [place] PROCEDURES Final Result * CT Head wo Contrast (10/25/2024 9:08 AM EDT) Anatomical Region Laterality Modality Head and Neck Computed Tomogra phy 10/25/2024 9:18 AM EDT Impressions 10/25/2024 9:20 AM EDT No acute intracranial findings. -------- FINAL REPORT -------- Dictated By: Bryan Bajwa Dictated Date: 10/25/2024 09:18 ET Assigned Physician: Bryan Bajwa Reviewed and Electronically Signed By: Bryan Bajwa Signed Date: 10/25/2024 09:20 ET Workstation ID: [id number] Transcribed By: Self Edit Transcribed Date: 10/25/2024 09:18 ET Narrative 10/25/2024 9:20 AM EDT PROCEDURE: Noncontrast head CT. HISTORY: Head trauma, minor (Age >= 65y). COMPARISON: None. TECHNIQUE: Noncontrast head CT with coronal and sagittal reformats. Dose length product: Total for all concurrently acquired exams was 2266 mGy-cm. FINDINGS: BRAIN: No hemorrhage, edema, mass, or extra-axial fluid collection. No CT evidence of an acute large vessel infarct. Ventricles and sulci are age commensurate. Atherosclerotic calcifications of the carotid siphons. ORBITS: Lens implants. SINUSES/MASTOIDS: Normal. CALVARIUM: Mild hyperostosis frontalis interna. OTHER: The skull base soft tissues are normal. Debris in the external auditory canals. Procedure Note Bryan Bajwa MD - 10/25/2024 PROCEDURE: Noncontrast head CT. HISTORY: Head trauma, minor (Age >= 65y). COMPARISON: None. TECHNIQUE: Noncontrast head CT with coronal and sagittal reformats. Dose length product: Total for all concurrently acquired exams was 2266mGy-cm. FINDINGS: BRAIN: No hemorrhage, edema, mass, or extra-axial fluid collection. No CTevidence of an acute large vessel infarct. Ventricles and sulci are agecommensurate. Atherosclerotic calcifications of the carotid siphons. ORBITS: Lens implants. SINUSES/MASTOIDS: Normal. CALVARIUM: Mild hyperostosis frontalis interna. OTHER: The skull base soft tissues are normal. Debris in the externalauditory canals. IMPRESSION: No acute intracranial findings. -------- FINAL REPORT -------- Dictated By: Bryan Bajwa Dictated Date: 10/25/2024 09:18 ET Assigned Physician: Bryan Bajwa Reviewed and Electronically Signed By: Bryan Bajwa Signed Date: 10/25/2024 09:20 ET Workstation ID: [id number] Transcribed By: Self Edit Transcribed Date: 10/25/2024 09:18 ET Heri Strong MD [facility] [place] PROCEDURES Final Result * (ABNORMAL) Basic metabolic panel (04/28/2024 10:17 AM EST) Sodium 142 133 - 145 mmol/L LAB CHEMISTRY METHOD 04/28/2024 11:10 AM EST [facility] Potassium 4.0 3.5 - 5.5 mmol/L LAB CHEMISTRY METHOD 04/28/2024 11:10 AM EST [facility] Chloride 110 96 - 110 mmol/L LAB CHEMISTRY METHOD 04/28/2024 11:10 AM [facility] CO2 26 21 - 32 mmol/L LAB CHEMISTRY METHOD 04/28/2024 11:10 AM [facility] Anion Gap 6 3 - 11 LAB CHEMISTRY METHOD 04/28/2024 11:10 AM [facility] Glucose 116(H) 70 - 100 mg/dL LAB CHEMISTRY METHOD 04/28/2024 11:10 AM [facility] BUN 20 5 - 25 mg/dL LAB CHEMISTRY METHOD 04/28/2024 11:10 AM [facility] Creatinine 0.81 0.50 - 1.10 mg/dL LAB CHEMISTRY METHOD 04/28/2024 11:10 AM [facility] eGFR 72 >=60 mL/min/1. 73m2 LAB CHEMISTRY METHOD 04/28/2024 11:10 AM [facility] Comment:Calculation based on the Chronic Kidney Disease Epidemiology Collaboration (CKD-EPI) equation refit without adjustment for race. BUN/Creatinine Ratio 24.7 LAB CHEMISTRY METHOD 04/28/2024 11:10 AM [facility] Calcium 8.9 8.5 - 10.5 mg/dL LAB CHEMISTRY METHOD 04/28/2024 11:10 AM [facility] Blood Venous blood specimen / Unknown Venipuncture / Unknown 04/28/2024 10:17 AM EST 04/28/2024 10:30 AM EST Pravin Jackson DO LAB BLOOD ORDERABLES Final Res ult [facility] [address] [place] [address], * Lipid panel (07/28/2023) LDL/HDL Ratio 2 0 - 4 Triglycerides 67 0 - 150 mg/dL Cholesterol 151 0 - 200 mg/dL HDL 65 >=40 mg/dL LDL Cholesterol 73 0 - 100 mg/dL Blood Venous blood specimen / Unknown us Historical Provider LAB BLOOD ORDERABLES Kamila l Result * DXA BONE DENSITY STUDY 1+ LAMONT QUESADA SKEL (09/10/2020 9:43 AM EDT) Anatomical Region Laterality Modality Bone Densitometr y 07/21/2020 9:23 AM EDT Narrative 09/10/2020 3:50 PM EDT BONE DENSITY (DEXA) Lumbar Spine T-score is BONE DENSITY (DEXA) Lumbar Spine T-score is 0.9. (SD relative to 20-29 y/o adult) Z-score is 3.6. (SD relative to age matched peers) This is considered normal by WHO criteria. Left Hip T-score is -0.8. Z-score is 1.5. This is considered normal by WHO criteria. Lateral view of the spine shows vertebral heights to be maintained. IMPRESSION: Patient is considered to have normal bone density by WHO criteria. The [facility] Department of Internal Medicine recommends using National Osteoporosis Foundation (NOF) guidelines in treatment decisions related to osteoporosis. NOF guidelines suggest considering treatment for postmenopausal women and men aged 50 or older presenting with the following: History of hip or vertebral fracture. T-score = -2.5 (DXA) at the femoral neck, total hip, or spine, after appropriate evaluation to exclude secondary causes. Low bone mass (T-score between -1.0 and -2.5 at the femoral neck or spine) AND a 10-year probability of a hip fracture = 3% OR a 10-year probability of a major osteoporosis-related fracture = 20% based on the [place]-adapted WHO algorithm Please note that all treatment decisions require clinical judgment and consideration of individual patient factors, including patient preferences, co-morbidities, previous drug use, risk factors not captured in the FRAX model (e.g., frailty, falls, vitamin D deficiency, increased bone turnover, interval significant decline in bone density) and possible under- or over-estimation of fracture risk by FRAX. Optional alternative screening schedule based on isaías Kirk., [facility] April 28, 2011 for patients with osteopenia (based on hip BMD T-score) is as follows: * advanced osteopenia (T scores -2.00 to -2.49), BMD testing every year * moderate osteopenia (T scores -1.50 to -1.99), BMD testing every 5 years mild osteopenia or normal BMD (T scores -1.50 and higher), BMD testing every 15 years . (SD relative to 20-29 y/o adult) Z-score is . (SD relative to age matched peers) This is considered by WHO criteria. Hip T-score is . Z-score is . This is considered by WHO criteria. Comparison exam(s): . Confidence level is +/-95%. Impression: by WHO criteria. This patient has a % risk of major osteoporotic fracture and a % risk of hip fracture over the next 10 years. (World Health Organization Fracture Risk Assessment) [facility] Department of Internal Medicine recommends using National Osteoporosis Foundation (NOF) guidelines in treatment decisions related to osteoporosis. NOF guidelines suggest considering treatment for postmenopausal women and men aged 50 or older presenting with the following: History of hip or vertebral fracture. T-score = -2.5 (DXA) at the femoral neck, total hip, or spine, after appropriate evaluation to exclude secondary causes. Low bone mass (T-score between -1.0 and -2.5 at the femoral neck or spine) AND a 10-year probability of a hip fracture = 3% OR a 10-year probability of a major osteoporosis-related fracture = 20% based on the [place]-adapted WHO algorithm Please note that all treatment decisions require clinical judgment and consideration of individual patient factors, including patient preferences, co-morbidities, previous drug use, risk factors not captured in the FRAX model (e.g., frailty, falls, vitamin D deficiency, increased bone turnover, interval significant decline in bone density) and possible under- or over-estimation of fracture risk by FRAX. Optional alternative screening schedule based on isaías Kirk., [facility] April 28, 2011 for patients with osteopenia (based on hip BMD T-score) is as follows: * advanced osteopenia (T scores -2.00 to -2.49), BMD testing every year * moderate osteopenia (T scores -1.50 to -1.99), BMD testing every 5 years mild osteopenia or normal BMD (T scores -1.50 and higher), BMD testing every 15 years Procedure Note Olive Fitch MD - 03/29/2022 BONE DENSITY (DEXA) Lumbar Spine T-score is BONE DENSITY (DEXA) Lumbar Spine T-score is 0.9. (SD relative to 20-29 y/o adult) Z-score is 3.6. (SD relative to age matched peers) This is considered normal by WHO criteria. Left Hip T-score is -0.8. Z-score is 1.5. This is considered normal by WHO criteria. Lateral view of the spine shows vertebral heights to be maintained. IMPRESSION: Patient is considered to have normal bone density by WHO criteria. [facility] Department of Internal Medicine recommendsusing National Osteoporosis Foundation (NOF) guidelines in treatment decisions related toosteoporosis. NOF guidelines suggest considering treatment for postmenopausal women and menaged 50 or older presenting with the following: History of hip or vertebral fracture. T-score = -2.5 (DXA) at the femoral neck, total hip, or spine, afterappropriate evaluation to exclude secondary causes. Low bone mass (T-score between -1.0 and -2.5 at the femoral neck or spine)AND a 10-year probability of a hip fracture = 3% OR a 10-year probability of a majorosteoporosis-related fracture = 20% based on the [place]-adapted WHO algorithm Please note that all treatment decisions require clinical judgment andconsideration of individual patient factors, including patient preferences, co- morbidities,previous drug use, risk factors not captured in the FRAX model (e.g., frailty, falls, vitaminD deficiency, increased bone turnover, interval significant decline in bone density) andpossible under- or over-estimation of fracture risk by FRAX. Optional alternative screening schedule based on isaías Kirk., [facility] for patients with osteopenia (based on hip BMD T-score) is as follows: * advanced osteopenia (T scores -2.00 to -2.49), BMD testing every year * moderate osteopenia (T scores -1.50 to -1.99), BMD testing every 5years mild osteopenia or normal BMD (T scores -1.50 and higher), BMD testingevery 15 years . (SD relative to 20-29 y/o adult) Z-score is . (SD relative to age matched peers) This is considered by WHO criteria. Hip T-score is . Z-score is . This is considered by WHO criteria. Comparison exam(s): . Confidence level is +/-95%. Impression: by WHO criteria. This patient has a % risk of major osteoporotic fractureand a % risk of hip fracture over the next 10 years. (World Health Organization Fracture RiskAssessment) [facility] Department of Internal Medicine recommendsusing National Osteoporosis Foundation (NOF) guidelines in treatment decisions related toosteoporosis. NOF guidelines suggest considering treatment for postmenopausal women and menaged 50 or older presenting with the following: History of hip or vertebral fracture. T-score = -2.5 (DXA) at the femoral neck, total hip, or spine, afterappropriate evaluation to exclude secondary causes. Low bone mass (T-score between -1.0 and -2.5 at the femoral neck or spine)AND a 10-year probability of a hip fracture = 3% OR a 10-year probability of a majorosteoporosis-related fracture = 20% based on the [place]-adapted WHO algorithm Please note that all treatment decisions require clinical judgment andconsideration of individual patient factors, including patient preferences, co- morbidities,previous drug use, risk factors not captured in the FRAX model (e.g., frailty, falls, vitaminD deficiency, increased bone turnover, interval significant decline in bone density) andpossible under- or over-estimation of fracture risk by FRAX. Optional alternative screening schedule based on isaías Kirk., [facility] for patients with osteopenia (based on hip BMD T-score) is as follows: * advanced osteopenia (T scores -2.00 to -2.49), BMD testing every year * moderate osteopenia (T scores -1.50 to -1.99), BMD testing every 5years mild osteopenia or normal BMD (T scores -1.50 and higher), BMD testingevery 15 years Sneha NAIK [facility] DXA PROCEDURES Final Result from Last 3 Months or Most Recently Relevant to Health Maintenance Insurance MEDICAID - [place] [employer] MEDICARE Care Teams Trade Mark Attorney Relationship Specialty Start Date End Date Kimberlyn Garcia MD [address] [place] [address] PCP - General Internal Medicine 09/15/20
--- OUTSIDE RECORDS SUMMARY | 2025-01-01 17:13 | XMS_ITS | Encounter Summary ---
Author Organization [employer] Address [address] [place] [address] 7 [place] [address] Care Team Providers Care Director Of Clinical Applications Name Role Phone Unavailable Primary Care Provider Unavailabl e Encounter Details Date Type Department Care Team (Latest Contact Info) Description 02/12/2019 Abstract [facility] CONVERSIONS Dental, Provider, DDS Social History [...] Description 04/01/2025 10:15 AM EST Office Visit [facility] [address] [place] [address] Maverick Briones documented as of this encounter Visit Diagnoses Not on filedocumented in this encounter
== END 2025-01-01 16:27 | disposition home or self-care (01) ==
PROVIDERS: PCP Internal Medicine; Visit Provider Physician Assistant
DX: R22.0 Localized swelling, mass and lump, head (principal); M25.561 Pain in right knee; M25.562 Pain in left knee; H61.23 Impacted cerumen, bilateral; W19.XXXA Unspecified fall, initial encounter

== ENCOUNTER 2025-01-01 14:38 | Outpatient (REF) | payer MEDICARE, SELFPAY ==
--- NOTE | ~2025-01-01 | XR_ITS ---
XR KNEE TREVOR 3V HISTORY: Pain and swelling of bilateral knees. COMPARISON: No prior. TECHNIQUE: AP view bilateral knees standing, lateral and tunnel views bilateral knees. FINDINGS: RIGHT KNEE: No fracture, dislocation, or suspicious bone lesion. Chondrocalcinosis in the medial and lateral compartments. Very mild medial and lateral compartment joint space narrowing. Mild spurring of the tibial spines. There is superior patellar enthesopathy. No evidence of joint effusion. Soft tissues appear normal. LEFT KNEE: No fracture, dislocation, or suspicious bone lesion. Extremely subtle chondrocalcinosis in the medial and lateral compartments. Very mild medial lateral compartment joint space narrowing. Mild spurring of the tibial spines. There is superior patellar enthesopathy. No evidence of joint effusion. Soft tissues appear normal. XR/XR Knee Trevor 3V IMPRESSION: 1. No acute bony abnormalities of either knee. No joint effusions. 2. 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 3. Mild medial and lateral compartment osteoarthrosis bilaterally. Electronically signed by: Bhupinder Rocha MD 01/01/2025 04:03 PM EDT
--- NOTE | ~2025-01-01 | XR_ITS ---
EXAMINATION: XR NASAL BONES CLINICAL INFORMATION: W19.XXXA - Unspecified fall, initial encounter COMPARISON: None available. TECHNIQUE: 3 views of the nasal bones were obtained. FINDINGS: Examination mildly limited due to obliquity on the lateral projections. There are no gross nasal fractures. No dislocation. The nasal septum is midline. Orbits appear intact. Paranasal sinuses are grossly well pneumatized without air-fluid levels or gross opacity. Mastoids appear aerated. No bone lesions present. XR/XR nasal bones min 3V IMPRESSION: Slightly limited exam. No nasal fracture identified. Electronically signed by: Bhupinder Rocha MD 01/01/2025 04:00 PM EDT
== END 2025-01-01 14:39 | disposition home or self-care (01) ==
LOC: HO.HMGCX 14:38
PROVIDERS: PCP Internal Medicine; Visit Provider Physician Assistant
DX: M25.561 Pain in right knee (principal); M25.562 Pain in left knee; H61.23 Impacted cerumen, bilateral; J34.89 Other specified disorders of nose and nasal sinuses; R22.0 Localized swelling, mass and lump, head; W19.XXXA Unspecified fall, initial encounter
CPT/HCPCS: 69209; 70160; 73562; 99212

== ENCOUNTER → 2025-01-01 15:20 | Outpatient (BNV) | payer MEDICARE, SELFPAY | PROVIDERS: PCP Internal Medicine; Visit Provider Radiology Diagnostic Radiology | DX: M11.261 Other chondrocalcinosis, right knee (principal); M11.262 Other chondrocalcinosis, left knee; J34.89 Other specified disorders of nose and nasal sinuses; W19.XXXA Unspecified fall, initial encounter | CPT/HCPCS: 70160; 73562 ==

== ENCOUNTER 2025-02-26 11:27 | Outpatient (AMB) | payer MEDICARE, SELFPAY ==
[2025-02-26 11:50] VITALS: BP 116/48; PULSE 73; RESP 12; TEMP 36.7; O2SAT 95; BMI 26.2
--- NOTE | 2025-02-26 11:50 | AM.OFFWIN_ITS ---
Intake Vital Signs 02/26/25 11:50 Height 5 ft 2 in Weight 143 lb BMI 26.2 BP 116/48 L Blood Pressure Location Lt brachial Position Sitting Respiration 12 Pulse 73 Pulse Source Pulse Oximeter Temp 98.1 F Temp Source Oral Pulse Oximetry (%) 95 Oxygen Delivery Method Room Air Intake Visit Reasons: EP chandler miller not able to go to bathroom Intake Note: Patient presents right sided pelvic pain, chills, headache, unable to go to the bathroom, no appetite, dehydrated, cough - since monday. Patient notes some lightheadedness & nausea at times. Allergies No Known Allergies Allergy (Verified 02/26/25 11:55) HPI EP chandler miller not able to go to bathroom HPI Details 84 year old female patient presents to [facility] with her daughter present. She reports that over the weekend she started to feel fatigued with chills. She also started to have some right lower groin pain, worse with movement/bending. Denies any fevers. No pain with urination. She reports no appetite for the last few days, and has had extremely minimal PO intake. Unable to provide urine upon intake. Has also had a mild URI with cough for the last several days. Review of Systems Const All systems reviewed & are unremarkable except as noted in HPI and below Physical Exam Vital Signs: Last Vital Signs Temp 98.1 F 02/26/25 11:50 Pulse 73 02/26/25 11:50 Resp 12 02/26/25 11:50 BP 116/32 L 02/26/25 11:50 Pulse Ox 95 02/26/25 11:50 Oxygen Delivery Method Room Air 02/26/25 11:50 BMI result Body Mass Index 26.2 Const General: cooperative, healthy appearing, comfortable and no acute distress HEENT Head: Yes normal to inspection Ears: hearing grossly normal bilaterally General nose exam: Normal external nose present Face and sinus: Yes normal facial exam Mouth: Normal oral and palatal mucosa present Throat: Yes posterior oropharynx normal Neck Neck: Yes no lymphadenopathy Resp Effort & Inspection: normal respiratory effort Auscultation: clear to auscultation bilaterally Cardio Palpation: normal PMI Rate: regular rate Rhythm: regular rhythm General: Yes CVA tenderness on the right (mild) Back/Spine/Pelvis Back: CVA tenderness Skin General skin exam: no rashes or lesions noted Extrem General: Yes capillary refill normal and Yes no clubbing, cyanosis or edema Psych Appearance: grossly normal Mental Status: mental status grossly normal Speech and movement: Normal speech and movement present Results AMB Urinalysis, Automated UA Leukoctes 70 Ian/uL Last Edit by Debora Oneill CMA on 02/26/25 12:28 UA Nitrite Negative Last Edit by Debora Oneill CMA on 02/26/25 12:28 UA Urobilinogen 0.2 mg/dL Last Edit by Debora Oneill CMA on 02/26/25 12: 28 UA Protein 30 mg/dL Last Edit by Debora Oneill CMA on 02/26/25 12:28 UA pH 5.5 Last Edit by Debora Oneill CMA on 02/26/25 12:28 UA Blood 25 Mike/uL Last Edit by Debora Oneill CMA on 02/26/25 12:28 UA Specific [place] 1.030 Last Edit by Debora Oneill CMA on 02/26/25 12 :28 UA Ketone Negative Last Edit by Debora Oneill CMA on 02/26/25 12:28 UA Bilirubin 1 mg/dL Last Edit by Debora Oneill CMA on 02/26/25 12:28 UA Glucose 0 mg/dL Last Edit by Debora Oneill CMA on 02/26/25 12:28 Assessment & Plan Assessment & Plan (1) UTI (urinary tract infection): Code(s): N39.0 - Urinary tract infection, site not specified Qualifiers: Urinary tract infection type: acute cystitis Hematuria presence: with hematuria Qualified Code(s): N30.01 - Acute cystitis with hematuria Plan: Patient was able to void a small amount in the office - positive for bili, blood, pro, leuks. Not a sufficient amount to send for culture. Will treat for UTI. Macrobid due to multiple interactions with cephalosporins. Advised ways to increase hydration and advance PO intake as tolerated. Advised to go to the ED if flank pain recurs, or if she develops any worsening symptoms, fevers, or inability to void. Patient and daughter present at visit both verbalize understanding and agreed to plan. Orders: Orders AMB Urinalysis Automated Today Z13.9 - Encounter for screening, unspecified Medications: New nitrofurantoin macrocrystal Take twice a day with food for 5 days. 100 mg PO BID 10 caps 0RF 5 days N39.0 - Urinary tract infection, site not specified Coding Level of Care Code Est Pt Level 4 (27444) Diagnoses Acute cystitis with hematuria N30.01 Urinary tract infection type: acute cystitis Hematuria presence: with hematuria
--- OUTSIDE RECORDS SUMMARY | 2025-02-26 22:36 | XMS_ITS | Encounter Summary ---
Author Organization [employer] Address [address] [place] [address] [place] [address] Care Team Providers Care Education And Outreach Coordinator Name Role Phone Unavailable Primary Care Provider Unavailabl e Reason for Visit * Reason Onset Date Comments Appointment 08/26/2022 Encounter Details Date Type Department Care Team (Late st Contact Info) Description 08/26/2022 Telephone [facility] [address] [place] [address] Ehsan Reddy [address] [place], [place] [id number] Appointment Social History Tobacco Use Types Packs/Day [...] been on wait list since May in [facility] for Prophy exam xrays. No room on PAR side for scheduling. Pls reach out to patient for appt DR documented in this encounter Plan of Treatment Upcoming Encounters Date Type Department Care Team (Late st Contact Info) Description 04/01/2025 10:15 AM EST Office Visit [facility] [address] [place] [address] Maverick Briones documented as of this encounter Visit Diagnoses Not on filedocumented in this encounter
--- OUTSIDE RECORDS SUMMARY | 2025-02-26 22:36 | XMS_ITS | Encounter Summary ---
Author Organization [employer] Address [address] [place] [address] [address] [place] [address] Care Team Providers Care Quantitative Strategy Analyst Name Role Phone Unavailable Primary Care Provider Unavailabl e Encounter Details Date Type Department Care Team (Latest Contact Info) Description 08/11/2021 Abstract [facility] CONVERSIONS Dental, Provider, DDS Social History Tobacco [...] Description 04/01/2025 10:15 AM EST Office Visit [facility] [address] [place] [address] Maverick Briones documented as of this encounter Visit Diagnoses Not on filedocumented in this encounter
--- OUTSIDE RECORDS SUMMARY | 2025-02-26 22:36 | XMS_ITS | Clinical Summary ---
Author Organization [employer] Address [address] [place] [address] [address] [place] [address] Care Team Providers Care Cabinet Mounter Name Role Phone Unavailable Primary Care Provider [...] by mouth Once per day. 08/01/2024 Active Social History Tobacco Use Types Packs/Day Years [...] 04/01/2025 10:15 AM EST Office Visit [facility] [address] [place] [address] Maverick Briones Health Maintenance Due Date Last [...] Procedure Name Priority Date/Time Associated Diagnosis Comments PROPHYLAXIS - ADULT Routine 09/24/2024 8 :00 [...]
--- OUTSIDE RECORDS SUMMARY | 2025-02-26 22:36 | XMS_ITS | Encounter Summary ---
Author Organization [employer] Address [address] [place] [address] [address] [place] [address] Care Team Providers Care Manager Documentation Name Role Phone Unavailable Primary Care Provider Unavailabl e Encounter Details Date Type Department Care Team (Latest Contact Info) Description 06/08/2020 Abstract [facility] CONVERSIONS Dental, Provider, DDS Social History Tobacco [...] 04/01/2025 10:15 AM EST Office Visit [facility] [address] [place] [address] Maverick Briones documented as of this encounter Visit Diagnoses Not on filedocumented in this encounter
--- OUTSIDE RECORDS SUMMARY | 2025-02-26 22:36 | XMS_ITS | Encounter Summary ---
Author Organization [employer] Address [address] [place] [address] 7 [place] [address] Care Team Providers Care Podiatry Assistant Name Role Phone Unavailable Primary Care Provider Unavailabl e Encounter Details Date Type Department Care Team (Latest Contact Info) Description 02/12/2019 Abstract [facility] CONVERSIONS Dental, Provider, DDS Social History [...] Description 04/01/2025 10:15 AM EST Office Visit [facility] [address] [place] [address] Maverick Briones documented as of this encounter Visit Diagnoses Not on filedocumented in this encounter
== END 2025-02-26 12:36 | disposition home or self-care (01) ==
PROVIDERS: PCP Internal Medicine; Visit Provider Nurse Practitioner Family
DX: N30.01 Acute cystitis with hematuria (principal); Z13.9 Encounter for screening, unspecified

== ENCOUNTER → 2025-02-26 11:27 | Outpatient (BNVA) | payer MEDICARE, SELFPAY | PROVIDERS: PCP Internal Medicine; Visit Provider Nurse Practitioner Family | DX: N30.01 Acute cystitis with hematuria (principal) | CPT/HCPCS: 81003; 99212 ==